=== PATIENT | female | born 1970 | race Caucasian/White ===

== ENCOUNTER 2018-09-02 10:37 | Emergency (ER) | payer MEDICAID ==
[2018-09-02 10:51] VITALS: BP 147/95; PULSE 92; RESP 20; TEMP 99.2; O2SAT 100
--- NOTE | 2018-09-02 11:27 | C.PDOC ---
History Of Present Illness 48 year old female presents to the ED complaining of dental pain status post root canal on 08/30/18. Reports pain is 9/10 despite taking Ibuprofen prescribed by Dentist. Notes pain is mainly on the left lower side. States she tried contacting her dentist multiple times but did not get a call back to schedule an appointment. Denies any fever, chills, gingival swelling or bleeding, sore throat, or headache. Chief Complaint (Nursing): Dental Pain History Per: Patient History/Exam Limitations: no limitations Onset/Duration Of Symptoms: Days (3) Current Symptoms Are (Timing): Still Present Quality: Positive for: "Pain" Past Medical History Reviewed: Historical Data, Nursing Documentation, Vital Signs Vital Signs: Last Vital Signs Temp 99.2 F 09/02/18 10:48 Pulse 92 H 09/02/18 10:48 Resp 20 09/02/18 10:48 BP 147/95 H 09/02/18 10:48 Pulse Ox 100 09/02/18 10:48 Primary Care Provider: Jeff Nielsen Medical History PMH: No Chronic Diseases Other Surgeries: Hx of surgeries Family History: States: No Known Family Hx - Social History Hx Alcohol Use: No Hx Substance Use: No - Immunization History Hx Tetanus Toxoid Vaccination: No Hx Influenza Vaccination: No Hx Pneumococcal Vaccination: No Review Of Systems Constitutional: Negative for: Fever, Chills ENT: Positive for: Mouth Pain (left lower molar pain ). Negative for: Mouth Swelling, Throat Pain, Throat Swelling, Other (gingival swelling or bleeding ) Neurological: Negative for: Headache Physical Exam - Physical Exam Appears: Non-toxic, No Acute Distress Skin: Warm, Dry, No Rash Head: Normacephalic Eye(s): bilateral: PERRL, EOMI Ear(s): Bilateral: Normal Nose: Normal Oral Mucosa: Moist Tongue: Normal Appearing Lips: Normal Appearing Teeth: No Normal Dentition (poor dentition ), Caries (multiple ), Tender To Palpation (left lower molars ), No Other (bleeding, drainage ) Gingiva: No Swelling, No Bleeding Chest: Symmetrical Cardiovascular: Rhythm Regular Respiratory: Normal Breath Sounds, No Accessory Muscle Use Neurological/Psych: Oriented x3, Normal Speech Gait: Steady ED Course And Treatment O2 Sat by Pulse Oximetry: 100 (RA) Pulse Ox Interpretation: Normal Medical Decision Making Medical Decision Making: Plan - Toradol 30mg IM given On reassessment, patient reports marked improvement recommended orajel to help alleviate pain Instructed to continue Ibuprofen and follow up with Dentist Patient verbalizes understanding and is in agreement with plan Patient is stable for discharge. Disposition Counseled Patient/Family Regarding: Diagnosis, Need For Followup, Rx Given - Disposition Referrals: Jeff Nielsen MD [Medical Doctor] - Disposition: HOME/ ROUTINE Disposition Time: 11:27 Condition: IMPROVED Additional Instructions: Start orajel as needed for pain continue antibiotics and ibuprofen 800mg prescribed by dentist follow up with dentists in 1-2 days return to the ED if symptoms worses Prescriptions: Benzocaine 20% [Orajel PM Maximum Strength] 1 appl MM PRN PRN #1 tube PRN Reason: Pain, Moderate (4-7) Instructions: Dental Pain (DC) Forms: [employer] (Chinese) - Clinical Impression Clinical Impression: Pain, dental - PA / [employer] SUPERVISOR / Resident Statement MD/DO has reviewed & agrees with the documentation as recorded. - Scribe Statement The provider has reviewed the documentation as recorded by the Scribronaldo Purvis All medical record entries made by the Louiseibronaldo were at my direction and personally dictated by me. I have reviewed the chart and agree that the record accurately reflects my personal performance of the history, physical exam, medical decision making, and the department course for this patient. I have also personally directed, reviewed, and agree with the discharge instructions and disposition.
== END 2018-09-02 11:55 | disposition home or self-care (01) ==
LOC: C.ER 10:37
DX: K08.89 Other specified disorders of teeth and supporting structures (principal)
CPT/HCPCS: 96372; 99282; J1885